=== PATIENT | female | born 1955 | race Caucasian/White ===

== ENCOUNTER → 2018-06-25 14:44 | Outpatient (CLI) | payer OTHER, SELFPAY ==
--- NOTE | 2018-06-25 14:49 | RAD_ITS ---
STUDY: X-RAY - RIGHT TIBIA AND FIBULA REASON FOR EXAM: Female, 63 years old. Midshaft tibia pain TECHNIQUE: 2 view(s) of the tibia and fibula were obtained. COMPARISON: None. FINDINGS: Normal visualized tibia. Normal visualized fibula. The soft tissue structures are unremarkable. RAD/Tibia & Fibula 2 Views IMPRESSION: Normal x-ray examination of the tibia and fibula. Electronically Signed: Manuel Del Castillo DO at 10:44 EDT Tel , Service support ,
== END ==
PROVIDERS: Family Provider Family Medicine; PCP Family Medicine; Visit Provider Family Medicine
DX: S80.11XA Contusion of right lower leg, initial encounter (principal)
CPT/HCPCS: 73590

== ENCOUNTER → 2018-06-27 14:40 | Outpatient (CLI) | payer OTHER, SELFPAY ==
--- NOTE | 2018-06-27 14:44 | BI_ITS ---
MAMMOGRAPHY - BILATERAL SCREENING REASON FOR EXAM: Female, 63 years old. Routine annual screening examination. PERTINENT HISTORY: Aunt with breast cancer. TECHNIQUE: Digital bilateral breast alan (3D mammographic acquisition) in the CC and MLO projections. 2-D mediolateral oblique (MLO) and craniocaudad (CC) views of both breasts were obtained. CAD: Full Field Digital Mammography with Computer Added Detection was performed. COMPARISON: Comparison is made with prior study dated June 22, 2017 and June 15, 2016. FINDINGS: Breast Composition: The breasts are heterogeneously dense, which may obscure small masses. There are no dominant masses or suspicious calcifications. No other significant abnormalities are identified. There has been no significant change since the prior study. BI/SCREENING MAMM (CAD), BILAT IMPRESSION: Stable bilateral screening mammogram. Yearly follow-up mammogram recommended. (A) ASSESSMENT CATEGORY: BIRADS Category 1: Negative. A letter regarding these results will be sent to the patient by the facility within 30 days. Approximately 10% of breast cancers are not detected by mammography. A normal mammogram should not delay biopsy of a clinically suspicious abnormality. [id number] Electronically Signed: Alex Menon MD at 8:04 EDT Tel [phone], Service support ,
== END ==
PROVIDERS: Family Provider Family Medicine; PCP Family Medicine; Visit Provider Obstetrics & Gynecology
DX: Z12.31 Encounter for screening mammogram for malignant neoplasm of breast (principal)
CPT/HCPCS: 77063; 77067

== ENCOUNTER → 2019-07-16 07:56 | Outpatient (CLI) | payer MEDICARE, SELFPAY ==
--- NOTE | 2019-07-16 08:02 | BI_ITS ---
BILATERAL DIGITAL MAMMOGRAM WITH TOMOSYNTHESIS: Mediolateraloblique and craniocaudal views demonstrate no evidence of dominant parenchymal masses. No cluster of microcalcifications or architectural distortion is seen. No evidence of skin thickening is identified. There has been no significant change since 06/27/2018. Breast Density: The breast tissue is extremely dense which may lower the sensitivity of mammography. CAD was used to assist in final assessment. IMPRESSION: NORMAL MAMMOGRAM BILATERALLY. ASSESSMENT CATEGORY: BIRADS Category 1: Negative. A letter regarding these results will be sent to the patient by the facility within 30 days. FOLLOW UP RECOMMENDATION: Yearly follow up mammogram recommended. (A) Approximately 10% of breast cancers are not detected by mammography. A normal mammogram should not delay biopsy of a clinically suspicious abnormality. Electronically Signed: Benjamín De Anda, at 17:25 EDT Tel , Service support , BI/SCREEN MAMM (CAD) W/PALOMA MCDONALD
== END ==
PROVIDERS: Family Provider Family Medicine; PCP Family Medicine; Referring Provider Obstetrics & Gynecology; Visit Provider Obstetrics & Gynecology
DX: Z12.31 Encounter for screening mammogram for malignant neoplasm of breast (principal)
CPT/HCPCS: 77063; 77067

== ENCOUNTER → 2020-07-20 | Outpatient (CLI) | payer MEDICARE, SELFPAY ==
[2020-07-20 22:43] LABS: Vitamin D,25 Hydroxy 34.8 ng/mL
[2020-07-22 20:49] LABS: V-Zoster IgG (Immunity) 2573 index (Immune >165)
== END | disposition home or self-care (01) ==
PROVIDERS: PCP Family Medicine; Visit Provider Family Medicine
DX: M85.80 Other specified disorders of bone density and structure, unspecified site (principal); E55.9 Vitamin D deficiency, unspecified; Z28.3 Underimmunization status
CPT/HCPCS: 36415; 82306; 86787

== ENCOUNTER → 2020-08-28 07:46 | Outpatient (CLI) | payer MEDICARE, OTHER, SELFPAY ==
[2020-07-29 10:23] VITALS: BMI 20.3
--- NOTE | 2020-08-28 07:55 | BI_ITS ---
MAMMOGRAPHY - BILATERAL SCREENING REASON FOR EXAM: Female, 65 years old. Routine annual screening examination. PERTINENT HISTORY: Aunt with breast cancer. TECHNIQUE: Digital bilateral breast paloma (3D mammographic acquisition) in the CC and MLO projections. 2-D mediolateral oblique (MLO) and craniocaudad (CC) views of both breasts were obtained. CAD: Full Field Digital Mammography with Computer Added Detection was performed. COMPARISON: Comparison is made with prior study dated 07/16/2019 and 06/27/2008. FINDINGS: Breast Composition: The breasts are extremely dense, which lowers the sensitivity of mammography. There are no dominant masses or suspicious calcifications. Stable small benign appearing bilateral axillary lymph nodes. No other significant abnormalities are identified. There has been no significant change since the prior study. BI/SCREEN MAMM (CAD) W/PALOMA BILAT IMPRESSION: Stable bilateral screening mammogram. Yearly follow-up mammogram recommended. (A) ASSESSMENT CATEGORY: BIRADS Category 2: Benign. A letter regarding these results will be sent to the patient by the facility within 30 days. Approximately 10% of breast cancers are not detected by mammography. A normal mammogram should not delay biopsy of a clinically suspicious abnormality. [id number] Electronically Signed: Alex Menon, at 9:23 EST , Service support ,
== END ==
PROVIDERS: PCP Family Medicine; Referring Provider Nurse Practitioner Women's Health; Visit Provider Nurse Practitioner Women's Health
DX: Z12.31 Encounter for screening mammogram for malignant neoplasm of breast (principal)
CPT/HCPCS: 77063; 77067

== ENCOUNTER → 2021-09-09 08:16 | Outpatient (CLI) | payer MEDICARE, OTHER, SELFPAY ==
--- NOTE | 2021-09-09 08:20 | BI_ITS ---
MAMMOGRAPHY - BILATERAL SCREENING REASON FOR EXAM: Female, 66 years old. Routine annual screening examination. PERTINENT HISTORY: Aunt with breast cancer. TECHNIQUE: Digital bilateral breast paloma (3D mammographic acquisition) in the CC and MLO projections. 2-D mediolateral oblique (MLO) and craniocaudad (CC) views of both breasts were obtained. CAD: Full Field Digital Mammography with Computer Added Detection was performed. COMPARISON: Comparison is made with prior study dated 08/28/2020 and 07/16/2019. FINDINGS: Breast Composition: The breasts are extremely dense, which lowers the sensitivity of mammography. There are no dominant masses or suspicious calcifications. Stable small benign-appearing bilateral axillary lymph nodes. No other significant abnormalities are identified. There has been no significant change since the prior study. BI/SCRN MAMM (CAD)W/PALOMA BILAT IMPRESSION: Stable bilateral screening mammogram. Yearly follow-up mammogram recommended. (A) ASSESSMENT CATEGORY: BIRADS Category 2: Benign. A letter regarding these results will be sent to the patient by the facility within 30 days. Approximately 10% of breast cancers are not detected by mammography. A normal mammogram should not delay biopsy of a clinically suspicious abnormality. [id number] Electronically Signed: Alex Menon MD at 9:23 EST , Service support ,
== END ==
PROVIDERS: PCP Family Medicine; Visit Provider Nurse Practitioner Women's Health
DX: Z12.31 Encounter for screening mammogram for malignant neoplasm of breast (principal)
CPT/HCPCS: 77063; 77067

== ENCOUNTER → 2022-09-14 | Outpatient (CLI) | payer MEDICARE, OTHER, SELFPAY ==
[2022-09-14 12:10] LABS: Absolute Lymphocyte Count 2.45 X10^3/uL (0.83-4.51); Absolute Neutrophil Count 2.7 X10^3/uL (2.0-7.7); Basophil# 0.03 X10^3/uL; Basophil% 0.5 % (0-1); Eosinophil# 0.08 X10^3/uL; Eosinophils% 1.4 % (0-5); Hematocrit 46.8 % (37-47); Hemoglobin 15.3 g/dL (12.0-15.0); Lymphocyte # 2.45 X10^3/ul (0.83-4.51); Lymphocyte % 42.2 % (19-41); Mean Corp Hgb Conc 32.7 g/dL (32-36); Mean Corpuscular Hgb 30.1 pg (27.0-32.0); Mean Corpuscular Volume 91.9 fL (81-99); Mean Platelet Vol. 10.9 fl (6.2-12.0); Monocyte% 8.6 % (0-10); NRBC Flagged by Analyzer 0 % (0-5); Neutrophil # 2.72 X10^3/uL (2.7-7.7); Platelet Count 321 K/mm3 (150-450); RBC Distribution Width CV 11.9 % (11.6-14.6); RBC Distribution Width SD 40.5 fl (35.1-43.9); Red Blood Count 5.09 M/mm3 (4.2-5.4); White Blood Count 5.8 K/mm3 (4.4-11.0)
[2022-09-14 12:37] LABS: ALB/GLOB Ratio 1.3 RATIO (0.9-2.4); AST(SGOT) 17 U/L (15-37); Alanine Aminotransfer ALT/SGPT 24 U/L (13-56); Albumin, Serum 4.3 g/dL (3.2-5.0); Alkaline Phosphatase 74 U/L (45-117); Anion Gap 3 (5-15); BUN 12 mg/dL (7-18); BUN/Creat Ratio 16.8 RATIO (10-20); Calcium,Total 9.6 mg/dL (8.5-10.1); Chloride 103 mmol/L (98-107); Cholesterol 226 mg/dL (200); Creatinine, Serum 0.72 mg/dL (0.55-1.02); EST Glomerular Filtration Rate 86 mL/min (>60); Est Glom Filt Rate - Afr Amer 104 mL/min (>60); Globulin 3.4 g/dL (2.2-4.2); Glucose 91 mg/dL (74-106); High Density Lipoprotein 64 mg/dL; Protein, Total 7.7 g/dL (6.4-8.2); Sodium Level 136 mmol/L (136-145); Triglycerides 107 mg/dL; Very Low Density Lipoprotein 21 mg/dL (5-40)
[2022-09-14 12:39] LABS: Vitamin D,25 Hydroxy 48.8 ng/mL
== END | disposition home or self-care (01) ==
LOC: BFHLAB 08:41
PROVIDERS: PCP Family Medicine; Visit Provider Family Medicine
DX: E78.5 Hyperlipidemia, unspecified (principal); R79.81 Abnormal blood-gas level; R53.83 Other fatigue; E55.9 Vitamin D deficiency, unspecified
CPT/HCPCS: 36415; 80053; 80061; 82306; 85025

== ENCOUNTER → 2022-09-16 | Outpatient (CLI) | payer MEDICARE, OTHER, SELFPAY ==
--- NOTE | 2022-09-16 11:42 | BI_ITS ---
MAMMOGRAPHY - BILATERAL SCREENING REASON FOR EXAM: Female, 67 years old. Routine annual screening examination. PERTINENT HISTORY: Aunt with breast cancer. TECHNIQUE: Digital bilateral breast paloma (3D mammographic acquisition) in the CC and MLO projections. 2-D mediolateral oblique (MLO) and craniocaudad (CC) views of both breasts were obtained. CAD: Full Field Digital Mammography with Computer Added Detection was performed. COMPARISON: Comparison is made with prior study dated 09/09/2021 and 08/28/2020. FINDINGS: Breast Composition: The breasts are extremely dense, which lowers the sensitivity of mammography. There are no dominant masses or suspicious calcifications. No other significant abnormalities are identified. There has been no significant change since the prior study. BI/SCRN MAMM (CAD)W/PALOMA BILAT IMPRESSION: Stable bilateral screening mammogram. Yearly follow-up mammogram recommended. (A) ASSESSMENT CATEGORY: BIRADS Category 1: Negative. A letter regarding these results will be sent to the patient by the facility within 30 days. Approximately 10% of breast cancers are not detected by mammography. A normal mammogram should not delay biopsy of a clinically suspicious abnormality. [id number] Electronically Signed: Alex Menon MD at 12:54 EST ,
== END | disposition home or self-care (01) ==
LOC: OPBI 11:41
PROVIDERS: PCP Family Medicine; Referring Provider Nurse Practitioner Women's Health; Visit Provider Nurse Practitioner Women's Health
DX: Z12.31 Encounter for screening mammogram for malignant neoplasm of breast (principal); Z80.3 Family history of malignant neoplasm of breast
CPT/HCPCS: 77063; 77067

== ENCOUNTER 2023-03-31 08:48 | Outpatient (CLI) | payer MEDICARE, OTHER, SELFPAY ==
[2023-03-31 09:30] LABS: Erythrocyte Sedimentation Rate 4 mm/hr (0-30)
[2023-03-31 09:53] LABS: CRP < 2.90 mg/L (0.0-3.0)
[2023-04-03 15:08] LABS: Endomysial Antibody IgA Negative (Negative); Immunoglobulin A 63 mg/dL (87-352); t-Transglutaminase IgA <2 U/mL (0-3)
[2023-04-05 22:07] LABS: Anti-Centromere B Ab <0.2 AI (0.0-0.9); Anti-Chromatin <0.2 AI (0.0-0.9); Anti-Jo <0.2 AI (0.0-0.9); Anti-Scleroderma-70 AB <0.2 AI (0.0-0.9); Anti-dsDNA Ab <1 IU/mL (0-9); Beef <0.10 kU/L (Class 0); Chocolate <0.10 kU/L (Class 0); Clam <0.10 kU/L (Class 0); Codfish <0.10 kU/L (Class 0); Corn <0.10 kU/L (Class 0); Egg, White <0.10 kU/L (Class 0); Egg, Whole <0.10 kU/L (Class 0); Milk (Cow) <0.10 kU/L (Class 0); Peanut <0.10 kU/L (Class 0); Pork <0.10 kU/L (Class 0); RNP Ab 0.4 AI (0.0-0.9); SCALLOP <0.10 kU/L (Class 0); SESAME SEED <0.10 kU/L (Class 0); SJOGREN'S Anti-SS-A test < 0.2 AI (0.0-0.9); SJOGREN'S Anti-SS-B test < 0.2 AI (0.0-0.9); Shrimp <0.10 kU/L (Class 0); Smith Ab <0.2 AI (0.0-0.9); Soybean <0.10 kU/L (Class 0); Walnut, (Food) <0.10 kU/L (Class 0); Wheat <0.10 kU/L (Class 0)
[2023-04-06 00:07] LABS: Albumin 4.3 g/dL (2.9-4.4); Alpha-1-Globulins 0.2 g/dL (0.0-0.4); Alpha-2-Globulins 0.9 g/dL (0.4-1.0); Cytoplasmic Ab (C-ANCA) <1:20 titer (Neg:<1:20); Gamma Globulin 0.8 g/dL (0.4-1.8); Gastrin, Serum < 10 pg/mL (0-115); Immunoglobulin A 68 mg/dL (87-352); Immunoglobulin E 21 IU/mL (6-495); Immunoglobulin G 740 mg/dL (586-1602); Immunoglobulin M 130 mg/dL (26-217); PROEL- TOTAL PROTEIN 7.2 g/dL (6.0-8.5); Perinuclear Ab (P-ANCA) <1:20 titer (Neg:<1:20)
== END 2023-03-31 23:59 | disposition home or self-care (01) ==
PROVIDERS: PCP Family Medicine; Referring Provider Internal Medicine Gastroenterology; Visit Provider Internal Medicine Gastroenterology
DX: K58.9 Irritable bowel syndrome, unspecified (principal); Z80.0 Family history of malignant neoplasm of digestive organs
CPT/HCPCS: 36415; 82784; 82785; 82941; 83516; 84165; 85652; 86003; 86005; 86140; 86225; 86235; 86255; 86256; 86334

== ENCOUNTER → 2023-04-04 | Outpatient (CLI) | payer MEDICARE, OTHER, SELFPAY ==
[2023-04-08 21:08] LABS: Calprotectin, Stool 9 ug/g (0-120); Fats, Neutral Normal (.); Fats, Total Normal (.)
[2023-04-11 14:07] LABS: Pancreatic Elastase, Fecal < 50 (>200)
== END | disposition home or self-care (01) ==
LOC: LABSPEC 09:03
PROVIDERS: PCP Family Medicine; Referring Provider Internal Medicine Gastroenterology; Visit Provider Internal Medicine Gastroenterology
DX: K58.9 Irritable bowel syndrome, unspecified (principal); Z80.0 Family history of malignant neoplasm of digestive organs
CPT/HCPCS: 82653; 82705; 83993; 87177; 87209; 87329

== ENCOUNTER → 2023-04-26 | Outpatient (CLI) | payer MEDICARE, OTHER, SELFPAY ==
--- NOTE | 2023-04-26 11:39 | NM_ITS ---
CLINICAL: 68-year-old female with history of abdominal bloating and cramping. SEMI-SOLID PHASE 99m Tc SULFUR COLLOID GASTRIC EMPTYING STUDY COMPARISON: None available FINDINGS: The patient was administered 1.0 mCi of 99m Tc sulfur colloid mixed with oatmeal and consumed per os. Image acquisitions in the anterior-posterior projections were obtained for 60 minutes. There is prompt visualization of the stomach. There is no gastroesophageal reflux identified. The T ? raw data emptying was calculated to be 24.9 minutes, (Normal: 12-56 minutes). NM/Gastric Emptying Study IMPRESSION: 1. NORMAL 99m Tc sulfur colloid semi-solid phase (oatmeal) gastric emptying imaging examination. A. There is normal and preserved semi-solid phase gastric emptying compared to normal controls. (Eliana et al, J Nucl Med Tech 38: 186, 2010). Electronically Signed: Dileep Whitmore, at 21:03 EDT ,
== END | disposition home or self-care (01) ==
LOC: NM 11:36
PROVIDERS: PCP Family Medicine; Referring Provider Internal Medicine Gastroenterology; Visit Provider Internal Medicine Gastroenterology
DX: R14.0 Abdominal distension (gaseous) (principal); Z80.0 Family history of malignant neoplasm of digestive organs
CPT/HCPCS: 78264; A9541

== ENCOUNTER → 2023-08-17 | Outpatient (CLI) | payer MEDICARE, OTHER, SELFPAY ==
[2023-08-17 08:41] LABS: Absolute Lymphocyte Count 2.17 X10^3/uL (0.83-4.51); Basophil# 0.05 X10^3/uL; Basophil% 0.7 % (0-1); Eosinophil# 0.12 X10^3/uL; Eosinophils% 1.8 % (0-5); Hematocrit 46.3 % (37-47); Hemoglobin 14.5 g/dL (12.0-15.0); Lymphocyte # 2.17 X10^3/ul (0.83-4.51); Lymphocyte % 32.1 % (19-41); Mean Corp Hgb Conc 31.3 g/dL (32-36); Mean Corpuscular Hgb 29.1 pg (27.0-32.0); Mean Platelet Vol. 10.6 fl (6.2-12.0); Monocyte# 0.39 X10^3/uL; Monocyte% 5.8 % (0-10); NRBC Flagged by Analyzer 0 % (0-5); Neutrophil # 3.99 X10^3/uL (2.7-7.7); Neutrophil % 59.2 % (47-70); Platelet Count 332 K/mm3 (150-450); RBC Distribution Width CV 11.9 % (11.6-14.6); RBC Distribution Width SD 41.1 fl (35.1-43.9); Red Blood Count 4.98 M/mm3 (4.2-5.4); White Blood Count 6.8 K/mm3 (4.4-11.0)
[2023-08-17 09:11] LABS: Vitamin D,25 Hydroxy 59.7 ng/mL
[2023-08-17 09:15] LABS: ALB/GLOB Ratio 1.3 RATIO (0.9-2.4); AST(SGOT) 21 U/L (15-37); Alanine Aminotransfer ALT/SGPT 30 U/L (13-56); Albumin, Serum 4.2 g/dL (3.2-5.0); Alkaline Phosphatase 85 U/L (45-117); Anion Gap 1 (5-15); BUN 10 mg/dL (7-18); BUN/Creat Ratio 14.9 RATIO (10-20); Calcium,Total 9.5 mg/dL (8.5-10.1); Chloride 106 mmol/L (98-107); Cholesterol 264 mg/dL (200); Creatinine, Serum 0.67 mg/dL (0.55-1.02); EST Glomerular Filtration Rate 93 mL/min (>60); Est Glom Filt Rate - Afr Amer 112 mL/min (>60); Globulin 3.3 g/dL (2.2-4.2); Glucose 101 mg/dL (74-106); High Density Lipoprotein 69 mg/dL; Potassium 3.8 mmol/L (3.5-5.1); Protein, Total 7.5 g/dL (6.4-8.2); Sodium Level 139 mmol/L (136-145); Triglycerides 157 mg/dL; Very Low Density Lipoprotein 31 mg/dL (5-40)
== END | disposition home or self-care (01) ==
LOC: LAB 08:09
PROVIDERS: PCP Family Medicine; Referring Provider Family Medicine; Visit Provider Family Medicine
DX: E78.5 Hyperlipidemia, unspecified (principal); E55.9 Vitamin D deficiency, unspecified; R53.83 Other fatigue
CPT/HCPCS: 36415; 80053; 80061; 82306; 85025

== ENCOUNTER → 2023-09-20 | Outpatient (CLI) | payer MEDICARE, OTHER, SELFPAY ==
--- NOTE | 2023-09-20 08:32 | BI_ITS ---
MAMMOGRAPHY - BILATERAL SCREENING REASON FOR EXAM: Female, 68 years old. Routine annual screening examination. PERTINENT HISTORY: Aunt with breast cancer. TECHNIQUE: Digital bilateral breast paloma (3D mammographic acquisition) in the CC and MLO projections. 2-D mediolateral oblique (MLO) and craniocaudad (CC) views of both breasts were obtained. CAD: Full Field Digital Mammography with Computer Added Detection was performed. COMPARISON: Comparison is made with prior study dated September 16, 2022 and September 09, 2021. FINDINGS: Breast Composition: The breasts are extremely dense, which lowers the sensitivity of mammography. There are no dominant masses or suspicious calcifications. No other significant abnormalities are identified. There has been no significant change since the prior study. BI/SCRN MAMM (CAD)W/PALOMA BILAT IMPRESSION: Stable bilateral screening mammogram. Yearly follow-up mammogram recommended. (A) ASSESSMENT CATEGORY: BIRADS Category 1: Negative. A letter regarding these results will be sent to the patient by the facility within 30 days. Approximately 10% of breast cancers are not detected by mammography. A normal mammogram should not delay biopsy of a clinically suspicious abnormality. [id number] Electronically Signed: Alex Menon MD at 10:52 EST ,
== END | disposition home or self-care (01) ==
LOC: OPBI 08:31
PROVIDERS: PCP Family Medicine; Referring Provider Nurse Practitioner Women's Health; Visit Provider Nurse Practitioner Women's Health
DX: Z12.31 Encounter for screening mammogram for malignant neoplasm of breast (principal)
CPT/HCPCS: 77063; 77067

== ENCOUNTER → 2024-09-23 | Outpatient (CLI) | payer MEDICARE, OTHER, SELFPAY ==
[2024-09-23 12:15] LABS: Absolute Neutrophil Count 4.1 X10^3/uL (2.0-7.7); Basophil# 0.03 X10^3/uL; Basophil% 0.4 % (0-1); Eosinophil# 0.09 X10^3/uL; Eosinophils% 1.2 % (0-5); Hematocrit 45.3 % (37-47); Hemoglobin 14.5 g/dL (12.0-15.0); Mean Corpuscular Volume 93.8 fL (81-99); Mean Platelet Vol. 10.5 fl (6.2-12.0); Monocyte# 0.57 X10^3/uL; Monocyte% 7.7 % (0-10); NRBC Flagged by Analyzer 0 % (0-5); Neutrophil # 4.14 X10^3/uL (2.7-7.7); Neutrophil % 56.3 % (47-70); Platelet Count 346 K/mm3 (150-450); RBC Distribution Width CV 11.9 % (11.6-14.6); RBC Distribution Width SD 41.5 fl (35.1-43.9); Red Blood Count 4.83 M/mm3 (4.2-5.4); White Blood Count 7.4 K/mm3 (4.4-11.0)
[2024-09-23 12:36] LABS: ALB/GLOB Ratio 1.1 RATIO (0.9-2.4); AST(SGOT) 20 U/L (15-37); Alanine Aminotransfer ALT/SGPT 31 U/L (13-56); Albumin, Serum 3.9 g/dL (3.2-5.0); Alkaline Phosphatase 104 U/L (45-117); Anion Gap 5 (5-15); BUN 8 mg/dL (7-18); BUN/Creat Ratio 9.7 RATIO (10-20); Calcium,Total 9.3 mg/dL (8.5-10.1); Chloride 100 mmol/L (98-107); Cholesterol 283 mg/dL (200); Creatinine, Serum 0.83 mg/dL (0.55-1.02); EST Glomerular Filtration Rate 72 mL/min (>60); Est Glom Filt Rate - Afr Amer 88 mL/min (>60); Globulin 3.4 g/dL (2.2-4.2); Glucose 91 mg/dL (74-106); High Density Lipoprotein 66 mg/dL; Potassium 3.9 mmol/L (3.5-5.1); Protein, Total 7.3 g/dL (6.4-8.2); Sodium Level 135 mmol/L (136-145); Triglycerides 152 mg/dL; Very Low Density Lipoprotein 30 mg/dL (5-40)
[2024-09-23 18:35] LABS: Vitamin D,25 Hydroxy 32.8 ng/mL
== END | disposition home or self-care (01) ==
LOC: LAB.FUTURE 10:53
PROVIDERS: PCP Family Medicine; Referring Provider Family Medicine; Visit Provider Family Medicine
DX: E78.5 Hyperlipidemia, unspecified (principal); E55.9 Vitamin D deficiency, unspecified; Z51.81 Encounter for therapeutic drug level monitoring
CPT/HCPCS: 36415; 80053; 80061; 82306; 85025

== ENCOUNTER → 2024-09-26 | Outpatient (CLI) | payer MEDICARE, OTHER, SELFPAY ==
--- NOTE | 2024-09-26 08:22 | BI_ITS ---
MAMMOGRAPHY - BILATERAL SCREENING REASON FOR EXAM: Female, 69 years old. Routine annual screening examination. PERTINENT HISTORY: Aunt with breast cancer. TECHNIQUE: Digital bilateral breast paloma (3D mammographic acquisition) in the CC and MLO projections. 2-D mediolateral oblique (MLO) and craniocaudad (CC) views of both breasts were obtained. CAD: Full Field Digital Mammography with Computer Added Detection was performed. COMPARISON: Comparison is made with prior study dated September 20, 2023 and September 16, 2022. FINDINGS: Breast Composition: The breasts are extremely dense, which lowers the sensitivity of mammography. There are no dominant masses or suspicious calcifications. No other significant abnormalities are identified. There has been no significant change since the prior study. BI/SCRN MAMM (CAD)W/PALOMA BILAT IMPRESSION: Stable bilateral screening mammogram. Yearly follow-up mammogram recommended. (A) ASSESSMENT CATEGORY: BIRADS Category 1: Negative. A letter regarding these results will be sent to the patient by the facility within 30 days. Approximately 10% of breast cancers are not detected by mammography. A normal mammogram should not delay biopsy of a clinically suspicious abnormality. [id number] Electronically Signed: Alex Menon MD at 9:21 EST ,
== END | disposition home or self-care (01) ==
LOC: OPBI 08:22
PROVIDERS: PCP Family Medicine; Referring Provider Nurse Practitioner Women's Health; Visit Provider Nurse Practitioner Women's Health
DX: Z12.31 Encounter for screening mammogram for malignant neoplasm of breast (principal)
CPT/HCPCS: 77063; 77067

== ENCOUNTER → 2024-09-30 | Outpatient (CLI) | payer MEDICARE, OTHER, SELFPAY ==
[2024-10-01 16:07] LABS: CHOLESTEROL TOTAL 255 mg/dL (100-199); HDL-C 60 mg/dL (>39); HDL-P TOTAL 36.9 umol/L (>=30.5); INSULIN RESISTANCE SCORE 54 (<=45); LDL SIZE 21.7 nm (>20.5); LDL-C (NIH CALC) 165 mg/dL (0-99); LDL-P 1658 nmol/L (<1000); SMALL LDL-P 463 nmol/L (<=527); TRIGLYCERIDES 166 mg/dL (0-149)
== END | disposition home or self-care (01) ==
LOC: BFHLAB 10:07
PROVIDERS: PCP Family Medicine; Referring Provider Family Medicine; Visit Provider Family Medicine
DX: E78.5 Hyperlipidemia, unspecified (principal)
CPT/HCPCS: 36415; 80061; 83704

== ENCOUNTER 2024-12-12 06:10 | Day surgery (SDC) | payer MEDICARE, OTHER, SELFPAY ==
[2024-12-12] VITALS (9 sets, daily range): BP systolic 80–138; BP diastolic 59–81; PULSE 60–83; RESP 16; TEMP 36.4–37; O2SAT 96–100
--- NOTE | 2024-12-12 06:42 | HP.PCM_ITS ---
HPI - General General Date of Admission: 12/12/24 Date of Service: 12/12/24 Chief Complaint: Family history of colon cancer HPI Narrative FRANCISCO DELCID, is a 69 F who presents today for surveillance colonoscopy. She has a positive family history in her daughter who was diagnosed with colon cancer. She is not having any problems with her bowels at this time. She does have a past medical history of exocrine pancreatic insufficiency. [facility] Medical History Wears glasses Post-menopausal Depression Anxiety Migraine headache Dietary restriction Non-smoker HLD (hyperlipidemia) IBS (irritable bowel syndrome) Essential tremor Osteoarthritis Vitamin D deficiency TMJ (dislocation of temporomandibular joint) Fibromyalgia Chronic headaches Arthritis Home Medications ?Medication ?Instructions ?Recorded ?Last Taken ?Type multivitamin 1 tab PO DAILY 07/29/20 Unkn own History sumatriptan succinate 25 mg tablet See Rx Instructions PO .COMPLEX 07/29/20 Unknown History (Imitrex) turmeric 400 mg capsule 400 mg PO DAILY PRN PRN ARTH RITIS 07/29/20 Unknown History diclofenac sodium 1 % topical gel 2 g topical ONCE PRN pain 02/08/23 Unknown History (Arthritis Pain (diclofenac)) [id number] See Rx Instructions PO .COMP PENNY 04/25/23 Unknown Rx 40,000-126,000-168,000 unit #320 caps capsule, delay rel (Zenpep) calcium 600 mg (as 2 tab PO DAILY 12/10/24 Unkn own History carbonate)-vitamin D3 5 mcg (200 unit) tablet (Calcium 600 + D(3)) cholecalciferol (vitamin D3) 50 4,000 unit PO DAILY Unknown History mcg (2,000 unit) capsule (Vitamin D3) citalopram 20 mg tablet (Celexa) 20 mg PO QHS 12/10/24 Unknown History ezetimibe 10 mg tablet 10 mg PO DAILY 12/10/24 Unkn own History Allergy/AdvReac Type Severity Reaction Status Date / Time No Known Allergies Allergy Verified 12/12/24 06:36 Family History Mother CHF (congestive heart failure) Depression Bipolar 1 disorder Father Hypertension Brother AVM (arteriovenous malformation) Brain bleed Aunt Cancer Daughter Colon cancer, Onset Age: 47 Surgical History History of colonoscopy History of surgery on arm History of appendectomy History of tonsillectomy Social History household members: spouse number of children: 2 current occupational status: retired history of recent travel: No sexually active: No (d/t ED) Smoking Status: Never smoker alcohol intake: current alcohol intake frequency: a few times a month substance use type: does not use diet: lactose free and other well-balanced diet: daily or most days what type of physical activity do you participate in: walking, yoga and weight training seatbelt use: always do you feel safe at home: Yes additional social history: - Zachariah ROS Constitutional Constitutional: Denies fatigue, fever(s), poor appetite, weight gain or weight l oss Gastrointestinal Gastrointestinal: Denies belching, bloating, change in bowel habits, change in stool character, chewing difficulty, coffee ground emesis, constipation, cramping, diarrhea, dyspepsia, dysphagia, early satiety, excessive flatus, fecal incontinence, heartburn, hematemesis, hematochezia, hemorrhoids, loose stools, melena, nausea, odynophagia, rectal bleeding, tenesmus, vomiting or weight changes Vital Signs Vital Signs Vital Signs: 12/12/24 06:36 12/12/24 06:36 Temperature 97.8 F Temperature Source Temporal Pulse Rate 60 Respiratory Rate 16 Respiratory Pattern Normal Blood Pressure 138/81 H Blood Pressure Mean 100 Blood Pressure Source Monitor Blood Pressure Position Semi-Fowlers Blood Pressure Location Right Arm Pulse Ox 99 Oxygen Delivery Method Room Air Weight Weight: 116 lb 13.52 oz Body Mass Index (BMI) 20.0 Physical Exam Const alert, oriented x3, no apparent distress and healthy appearing General Appearance: cooperative GI normal to inspection, nondistended, normoactive bowel sounds, soft to palpation, non-tender and non-distended Percussion: normal to percussion Rectal Exam: deferred Assessment & Plan Assessment/Plan (1) Family history of colon cancer: PLAN: Assessment and Plan Assessment and Plan (1) Family history of colon cancer: Status: Chronic Comment: daughter age 46-dec age 47. Plan: Unfortunately her daughter was diagnosed with stage III colon cancer and it has had a great effect on her anxiety and subsequently on her previous diagnosis of IBS. Fortunately she is doing very well in her treatment and hopefully she will continue down the course. She will undergo a colonoscopy due to strong family history of colon cancer. She was explained alternatives, risk, benefits include not withstanding bleeding, infection, sepsis, perforation, need for return to . She will have an ASA 3.
--- NOTE | 2024-12-12 06:57 | PRE.ANES_ITS ---
ASA Classification* ASA Classification ASA Classification: 2 Assessment & Plan Anesthesia* Anesthesia Assessment Anesthesia Assessment: Discussed sedation and/or anesthesia options, risks, benefits, and alternatives with patient/parents/legal guardian/POA. Questions invited. The patient/parents/legal guardian/POA seems to understand and agrees to proceed with anesthesia plan. Reviewed the physical assessment, medical history, allergy history and patient home medications list prior to surgery/procedure/anesthetic and documented any changes. Performed airway and anesthesia risk assessments. Anesthesia Type Anesthesia Type: MAC History Source History Obtained from:: Patient and Chart Anesthesia Focused Assessment* Temperature: 97.8 F Pulse Rate: 60 Blood Pressure: 138/81 Respiratory Rate: 16 Pulse Ox: 99 Oxygen Delivery Method: Room Air Airway Assessment Mouth opens: >3 cm Mallampati Score: IV Teeth Condition: Intact Neck Range of motion (ROM): Full ROM Focused Labs Anesthesia Preop lab: CBC WBC 7.4 K/mm3 (4.4-11.0) 09/23/24 10:54 09/23/24 RBC 4.83 M/mm3 (4.2-5.4) 09/23/24 10:54 09/23/24 Hgb 14.5 g/dL (12.0-15.0) 09/23/24 10:54 09/23/24 Hct 45.3 % (37-47) 09/23/24 10:54 09/23/24 Plt Count 346 K/mm3 (150-450) 09/23/24 10:54 09/23/24 CHEMISTRY Potassium 3.9 mmol/L (3.5-5.1) 09/23/24 10:54 09/23/24 Sodium 135 mmol/L (136-145) L 09/23/24 10:54 09/23/24 BUN 8 mg/dL (7-18) 09/23/24 10:54 09/23/24 Creatinine 0.83 mg/dL (0.55-1.02) 09/23/24 10:54 09/23/24 Glucose 91 mg/dL (74-106) 09/23/24 10:54 09/23/24 COAG Pre-Assessment Diagnosis/Proposed Procedure Planned Operative Procedure(s): COLONOSCOPY Anesthesia History Anesthesia History - demurrage agent: Anesthesia History - demurrage agent Hx Hospitalization No 12/10/24 15:49 Any Problems With Anesthesia No 12/10/24 15:49 Cholinesterase deficiency No 12/10/24 15:49 You/Your Family Experience No 12/10/24 15:49 fever (hyperthermia) with Relationship Recent Exposure to Contagious No 12/12/24 06:36 Disease Does patient have nerve No 12/10/24 15:49 stimulator Patient instructed to have device shut off --Does patient have Pacemaker No 12/12/24 06:36 or ICD? When Was Last Pacemaker Check QUESTION #4 FULL TEXT: You/Your Family Experience fever (hyperthermia) with Anesthesia Last Oral Intake Last Oral intake: Last Oral Intake NPO since 02:12/12/24 06:36 Meds taken in AM with sips of No 12/12/24 06:36 water? Meds patient instructed to take am of surgery Any additional information?: Yes NPO since: 02: (Patient finished prep at 2:30 AM.) Meds taken in AM with sips of water?: No PONV PONV - demurrage agent: PONV - demurrage agent Female Yes 12/10/24 15:49 HX of Motion Sickness No 12/10/24 15:49 HX of N/V After Surgery No 12/10/24 15:49 Non-Smoker Yes 12/10/24 15:49 Duration of Surgery greater No 12/10/24 15:49 than 60 minutes Number of Risk Factors 2 12/10/24 15:49 PONV Score Moderate Risk 12/10/24 15:49 Height & Weight Height & Weight: Anesthesia: Height & Weight Height 5 ft 4 in 12/12/24 06:36 Weight: 53 kg 12/12/24 06:36 Body Mass Index (BMI) 20.0 12/12/24 06:36 Respiratory Assessment Respiratory Assessment - demurrage agent: Respiratory Tract Infection Hx - demurrage agent Hx Respiratory Tract Infection No 12/10/24 15:49 STOP Sleep Apnea STOP Sleep Apnea - demurrage agent: STOP Sleep Apnea - demurrage agent Hx Hypertension No 12/10/24 15:49 Hx Sleep Apnea No 12/10/24 15:49 CPAP BIPAP Do you snore loudly (louder No 12/10/24 15:49 than talking or can be heard Do you often feel tired/ No 12/10/24 15:49 fatigued/ sleepy during daytime? Has anyone observed you stop No 12/10/24 15:49 breathing during sleep? STOP Results Negative 12/10/24 15:49 QUESTION #5 FULL TEXT : Do you snore loudly (louder than talking or can be heard through closed doors)? 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 Specify any problems Hx of Preganancy in last 3 No 12/10/24 15:49 Months Nurse Filling Out Transfusion MGRIFFITH 12/10/24 15:49 & Questions: Date: 12/10/24 12/10/24 15:49 Time: 15:52 12/10/24 15:49 Patient unable to answer at this time (ie. confused, unrespo /Reproduction History /Reproductive History - demurrage agent: /Reproductive Hx- demurrage agent Hx Now No 12/10/24 15:49 Gestational Age (in weeks): EDC: Hx Hx Para Hx Section SAB No 12/10/24 15:49 PFSH Medical History Wears glasses Post-menopausal Depression Anxiety Migraine headache Dietary restriction Non-smoker HLD (hyperlipidemia) IBS (irritable bowel syndrome) Essential tremor Osteoarthritis Vitamin D deficiency TMJ (dislocation of temporomandibular joint) Fibromyalgia Chronic headaches Arthritis Home Medications ?Medication ?Instructions ?Recorded ?Last Taken ?Type multivitamin 1 tab PO DAILY 07/29/20 Unkn own History sumatriptan succinate 25 mg tablet See Rx Instructions PO .COMPLEX 07/29/20 Unknown History (Imitrex) turmeric 400 mg capsule 400 mg PO DAILY PRN PRN ARTH RITIS 07/29/20 Unknown History diclofenac sodium 1 % topical gel 2 g topical ONCE PRN pain 02/08/23 Unknown History (Arthritis Pain (diclofenac)) [id number] See Rx Instructions PO .COMP PENNY 04/25/23 Unknown Rx 40,000-126,000-168,000 unit #320 caps capsule, delay rel (Zenpep) calcium 600 mg (as 2 tab PO DAILY 12/10/24 Unkn own History carbonate)-vitamin D3 5 mcg (200 unit) tablet (Calcium 600 + D(3)) cholecalciferol (vitamin D3) 50 4,000 unit PO DAILY Unknown History mcg (2,000 unit) capsule (Vitamin D3) citalopram 20 mg tablet (Celexa) 20 mg PO QHS 12/10/24 Unknown History ezetimibe 10 mg tablet 10 mg PO DAILY 12/10/24 Unkn own History Allergy/AdvReac Type Severity Reaction Status Date / Time No Known Allergies Allergy Verified 12/12/24 06:36 Family History Mother CHF (congestive heart failure) Depression Bipolar 1 disorder Father Hypertension Brother AVM (arteriovenous malformation) Brain bleed Aunt Cancer Daughter Colon cancer, Onset Age: 47 Surgical History History of colonoscopy History of surgery on arm History of appendectomy History of tonsillectomy Social History household members: spouse number of children: 2 current occupational status: retired history of recent travel: No sexually active: No (d/t ED) Smoking Status: Never smoker alcohol intake: current alcohol intake frequency: a few times a month substance use type: does not use diet: lactose free and other well-balanced diet: daily or most days what type of physical activity do you participate in: walking, yoga and weight training seatbelt use: always do you feel safe at home: Yes additional social history: - Zachariah Review of Systems (Anesthesia) ROS Narrative System reviewed and no additional complaints, except as documented.
--- NOTE | 2024-12-12 07:30 | COLBX_PTH ---
PATIENT: ANGIE YOO LOC: EN U#:[id number] AGE/SX: 69/F ROOM: RE12/12/[address]: Dr. Jann Alvarado DO : 1955 BED: DIS: 12/12/2024 SPEC #: [id number] RECD: 12/12/24 09:56 STATUS: NATHALY RECortney #: [id number] WILLY: 12/12/24 07:[address]: Jann Alvarado DEPT: SURGICAL PATHOLOGY RECD BY: Kelsy Moreno ENTERED: 12/12/24 11:26 SP TYPE: COLON BX OTHR DR: Dr. Frank Rodriguez DO Tissues: A - COLON BIOPSY B - Transverse colon Procedures: Surgery Specimen Level IV HEADER OPERATION: Colonoscopy with polypectomy and biopsy PRE-OP DIAGNOSIS: Family history of colon cancer TISSUE SUBMITTED: A- Hepatic flexure polyp, B- Transverse colon polyp biopsy MICROSCOPIC DIAGNOSIS A. Colon, hepatic flexure, polyp, biopsy: * Tubular adenoma. B. Transverse colon, polyp, biopsy: * Focal features suggestive of sessile serrated lesion. * Negative for dysplasia (deeper sections examined). MICROSCOPIC DESCRIPTION Slides are reviewed. GROSS DESCRIPTION Specimen A-received in formalin labeled Angie Yoo, and designated hepatic flexure polyp, are multiple noriega tissue fragments aggregating to 1.5 x 1.5 x 0.2 cm. Totally submitted in one cassette.Specimen B-received in formalin labeled Angie Yoo, and designated transverse colon polyp biopsy, is a noriega tissue fragment that measures 0.3 x 0.2 x 0.2 cm. Totally submitted in one cassette.JK. 12/12/2024 CPT:85951k7
--- NOTE | 2024-12-12 08:12 | OP.COLON_ITS ---
Patient Name: Angie Yoo Procedure Date: 12/12/2024 7:35 AM Date of : 1955 Age: 69 Procedure: Colonoscopy Indications: High risk colon cancer surveillance: Personal history of colonic polyps, Family history of colon cancer in a first-degree relative before age 60 years Providers: Jann Alvarado DO Referring MD: Frank Rodriguez Medicines: Monitored Anesthesia Care Patient Profile: This is a 69 year old female. Refer to note in patient chart for documentation of history and physical. Last Colonoscopy: 3 years ago. Complications: No immediate complications. Procedure: Pre-Anesthesia Assessment: - Prior to the procedure, a History and Physical was performed, and patient medications and allergies were reviewed. The patient is competent. The risks and benefits of the procedure and the sedation options and risks were discussed with the patient. All questions were answered and informed consent was obtained. Patient identification and proposed procedure were verified by the physician in the pre-procedure area. Mental Status Examination: alert and oriented. Airway Examination: normal oropharyngeal airway and neck mobility. Respiratory Examination: clear to auscultation. CV Examination: normal. Prophylactic Antibiotics: The patient does not require prophylactic antibiotics. Prior Anticoagulants: The patient has taken no anticoagulant or antiplatelet agents except for NSAID medication. ASA Grade Assessment: II - A patient with mild systemic disease. After reviewing the risks and benefits, the patient was deemed in satisfactory condition to undergo the procedure. The anesthesia plan was to use monitored anesthesia care (MAC). Immediately prior to administration of medications, the patient was re-assessed for adequacy to receive sedatives. The heart rate, respiratory rate, oxygen saturations, blood pressure, adequacy of pulmonary ventilation, and response to care were monitored throughout the procedure. The physical status of the patient was re-assessed after the procedure. After I obtained informed consent, the scope was passed under direct vision. Throughout the procedure, the patient's blood pressure, pulse, and oxygen saturations were monitored continuously. The colonoscope was introduced through the anus and advanced to the cecum, identified by appendiceal orifice and ileocecal valve. The colonoscopy was performed without difficulty. The patient tolerated the procedure well. The quality of the bowel preparation was adequate. The ileocecal valve, appendiceal orifice, and rectum were photographed. Scope In: 7:46:23 AM Scope Withdrawal Time 0 hours 12 minutes 20 seconds Scope Out: 8:06:52 AM Total Procedure Duration Time 0 hours 20 minutes 29 seconds Findings: The perianal and digital rectal examinations were normal. Multiple medium-mouthed diverticula were found in the recto-sigmoid colon and sigmoid colon. A 10 mm polyp was found in the hepatic flexure. The polyp was sessile. The polyp was removed with a hot snare. Resection and retrieval were complete. Verification of patient identification for the specimen was done. Estimated blood loss was minimal. A 6 mm polyp was found in the transverse colon. The polyp was sessile. The polyp was removed with a cold biopsy forceps. Resection and retrieval were complete. Verification of patient identification for the specimen was done. Estimated blood loss was minimal. Retroflexion in the rectum was not performed due to anatomy. Moderate rectal prolapse was present. Impression: - Diverticulosis in the recto-sigmoid colon and in the sigmoid colon. - One 10 mm polyp at the hepatic flexure, removed with a hot snare. Resected and retrieved. - One 6 mm polyp in the transverse colon, removed with a cold biopsy forceps. Resected and retrieved. - Rectal prolapse. Recommendation: - Discharge patient to home. - Resume previous diet. - Continue present medications. - Await pathology results. - Repeat colonoscopy in 3 years for surveillance. Procedure Code(s): --- Professional --- 92904, Colonoscopy, flexible; with removal of tumor(s), polyp(s), or other lesion(s) by snare technique 54188, 59, Colonoscopy, flexible; with biopsy, single or multiple CPT copyright 2021 [employer]. All rights reserved. The codes documented in this report are preliminary and upon touch up carver review may be revised to meet current compliance requirements. Jann Alvarado DO 12/12/2024 8:12:11 AM This report has been signed electronically. Number of Addenda: 0 Note Initiated On: 12/12/2024 7:35 AM
--- NOTE | 2024-12-12 08:13 | OP.CCLET_ITS ---
12/12/2024 Frank Rodriguez [address] [facility] [place] [address] Re : Colonoscopy procedure for Angie Naila Dear Dr. Rodriguez This procedure was performed on December. My impressions and recommendations are as follows: Impressions : - Diverticulosis in the recto-sigmoid colon and in the sigmoid colon. - One 10 mm polyp at the hepatic flexure, removed with a hot snare. Resected and retrieved. - One 6 mm polyp in the transverse colon, removed with a cold biopsy forceps. Resected and retrieved. - Rectal prolapse. Recommendations : - Discharge patient to home. - Resume previous diet. - Continue present medications. - Await pathology results. - Repeat colonoscopy in 3 years for surveillance. My findings are described in the full procedure note, which is enclosed. If I can be of further assistance, please feel free to contact me at . Sincerely, Jann Alvarado, 12/12/2024 8:12:11 AM This report has been signed electronically.
--- NOTE | 2024-12-12 08:16 | PCM.POST.ANE ---
Anesthesia: Postop Eval I Current Vital Signs Temperature: 97.6 F Pulse Rate: 80 Blood Pressure: 83/59 Respiratory Rate: 16 Pulse Ox: 100 Oxygen Delivery Method: Room Air Assessment Airway patent: Yes Spontaneous unlabored respirations: Yes Mental status: Asleep nausea: No Vomiting: No Anesthesia Complication: No Fluid Hydration Crystalloid volume administer (ml): 50 Total IV fluid infused: 50 Progress Note Anesthesia document: Postop Eval 1 completed: Yes
--- NOTE | 2024-12-12 12:39 | PCM.POSTANE2 ---
Anesthesia Postop Eval I Sum Postop Eval Completion status Anesthesia document: Postop Eval 1 completed: Yes Anesthesia Postop Eval I Summary Anesthesia Postop Eval I Summary: Anesthesia Postop Eval I: Assessment Summary Airway patent Yes 12/12/24 08:17 [email or web address] Spontaneous unlabored Yes 12/12/24 08:17 [email or web address] respirations Mental status Asleep 12/12/24 08:17 [email or web address] nausea No 12/12/24 08:17 [email or web address] Vomiting No 12/12/24 08:17 [email or web address] Anesthesia Postop Eval I: Fluid Summary Crystalloid volume administer 50 12/12/24 08:17 [email or web address] (ml) Colloids volume administered ( ml) Blood Product volume administered (ml) Total IV fluid infused 50 12/12/24 08:17 [email or web address] Anesthesia Postop Eval I: Summary Notes Anesthesia Complication No 12/12/24 08:17 [email or web address] Anesthesia Complication Comment: Post-operative progress note Anesthesia: Postop Eval II Evaluation Mental status: Awake and Calm Pain Level: 0 nausea: No Vomiting: No Complications Anesthesia Complication: No
== END 2024-12-12 09:02 | disposition home or self-care (01) ==
LOC: EN 06:13 → AC 06:14
PROVIDERS: PCP Family Medicine; Referring Provider Family Medicine; Visit Provider Internal Medicine Gastroenterology
PROC: 0DJD8ZZ Inspection of Lower Intestinal Tract, Via Natural or Artificial Opening Endoscopic (ICD-10-PCS; CPT 45378; principal; 2024-12-12 07:25)
DX: Z12.11 Encounter for screening for malignant neoplasm of colon (principal); K62.3 Rectal prolapse; E78.5 Hyperlipidemia, unspecified; K63.5 Polyp of colon; K57.30 Diverticulosis of large intestine without perforation or abscess without bleeding; Z86.0100 Personal history of colon polyps, unspecified; Z80.0 Family history of malignant neoplasm of digestive organs; D12.3 Benign neoplasm of transverse colon
CPT/HCPCS: 45385; 45380; 88305; A4216; J2405

== ENCOUNTER → 2024-12-23 | Outpatient (CLI) | payer MEDICARE, OTHER, SELFPAY ==
[2024-12-23 14:19] LABS: AST(SGOT) 23 U/L (<=31); Alanine Aminotransfer ALT/SGPT 30 U/L (<=34); Albumin, Serum 4.6 g/dL (3.4-4.8); Alkaline Phosphatase 82 U/L (35-104); Bilirubin, Direct 0.16 mg/dL (0.00-0.30); Cholesterol 217 mg/dL (<=200); Globulin 2.6 g/dL (2.2-4.2); High Density Lipoprotein 60 mg/dL; Low Density Lipoprotein Calc. 132 mg/dL; Protein, Total 7.2 g/dL (5.9-8.4); Total Bilirubin 0.43 mg/dL (0.00-1.30); Triglycerides 127 mg/dL; Very Low Density Lipoprotein 25 mg/dL (5-40); cholesterol:hdl ratio screen 3.62
== END | disposition home or self-care (01) ==
PROVIDERS: PCP Family Medicine; Visit Provider Family Medicine
DX: E78.5 Hyperlipidemia, unspecified (principal)
CPT/HCPCS: 36415; 80061; 80076

== ENCOUNTER → 2024-12-27 | Outpatient (CLI) | payer MEDICARE, OTHER, SELFPAY ==
--- NOTE | 2024-12-27 10:45 | RAD_ITS ---
PROCEDURE: CERV SPINE 4 OR 5 VIEWS ([facility]), 12/27/2024 REASON FOR EXAM: CERVICALGIA TECHNIQUE: AP, lateral, bilateral oblique, and open-mouth odontoid views of the cervical spine were obtained. COMPARISON: None FINDINGS: Fracture/dislocation: None visible. Vertebral body heights: Preserved. Alignment: Slight reversal of the normal cervical lordosis. Trace grade 1 likely degenerative anterolisthesis at C3-C4 and retrolisthesis at C5-C6. Disc spaces: Variable disc height loss focally up to moderate/severe at C4-C6 with tiny osteophytes and endplate sclerosis. Facets: Suspect mild midcervical facet arthropathy. Uncovertebral arthropathy also suggested. Soft tissues: Unremarkable. Foreign bodies: None visible. Bone mineralization: Demineralization. Other: Suspected bony midcervical foraminal stenoses on the LEFT, not well delineated by plain radiographs. RAD/Cerv Spine 4 or 5 Views IMPRESSION: 1. Demineralization without visible acute displaced fracture. 2. Multilevel spondylosis and additional description as above. Reading Location: [id number]
== END | disposition home or self-care (01) ==
LOC: MTRAD 10:41
PROVIDERS: PCP Family Medicine; Referring Provider Family Medicine; Visit Provider Family Medicine
DX: M54.2 Cervicalgia (principal)
CPT/HCPCS: 72050

== ENCOUNTER → 2025-09-27 | Outpatient (CLI) | payer MEDICARE, OTHER, SELFPAY ==
[2025-09-27 09:10] LABS: Hematocrit 42.8 % (37-47); Hemoglobin 14.3 g/dL (12.0-15.0); Immature Granulocytes Count 0.020 X10^3/uL (0.0-0.0); Mean Corp Hgb Conc 33.4 g/dL (32-36); Mean Corpuscular Volume 91.6 fL (81-99); Mean Platelet Vol. 9.6 fl (6.2-12.0); NRBC Flagged by Analyzer 0 % (0-5); Platelet Count 339 K/mm3 (150-450); RBC Distribution Width CV 12.3 % (11.6-14.6); RBC Distribution Width SD 41.0 fl (35.1-43.9); Red Blood Count 4.67 M/mm3 (4.2-5.4); White Blood Count 6.6 K/mm3 (4.4-11.0)
[2025-09-27 09:45] LABS: AST(SGOT) 24 U/L (<=31); Alanine Aminotransfer ALT/SGPT 26 U/L (<=34); Albumin, Serum 4.4 g/dL (3.4-4.8); Alkaline Phosphatase 89 U/L (35-104); Anion Gap 9 (5-15); BUN 8 mg/dL (4-19); BUN/Creat Ratio 12.8 RATIO (10-20); Calcium,Total 9.2 mg/dL (7.6-11.0); Carbon Dioxide 27.8 mmol/L (21.0-32.0); Chloride 101 mmol/L (98-108); Cholesterol 235 mg/dL (<=200); Globulin 2.4 g/dL (2.2-4.2); Glucose 90 mg/dL (70-99); Low Density Lipoprotein Calc. 149 mg/dL; Potassium 4.1 mmol/L (3.3-5.1); Triglycerides 138 mg/dL; Very Low Density Lipoprotein 28 mg/dL (5-40); cholesterol:hdl ratio screen 3.81
== END | disposition home or self-care (01) ==
LOC: LAB 08:50
PROVIDERS: PCP Family Medicine; Referring Provider Family Medicine; Visit Provider Family Medicine
DX: E78.5 Hyperlipidemia, unspecified (principal); E87.1 Hypo-osmolality and hyponatremia; D58.2 Other hemoglobinopathies
CPT/HCPCS: 36415; 80053; 80061; 85025

== ENCOUNTER → 2025-09-30 | Outpatient (CLI) | payer MEDICARE, OTHER, SELFPAY ==
--- NOTE | 2025-09-30 08:45 | BI_ITS ---
EXAM: SCRN MAMM (CAD)W/PALOMA BILAT DATE: 09/30/2025 CLINICAL HISTORY: F, Age 70 y/o , SCREENING FOR BREAST CANCER TECHNIQUE: Procedure Code: [id number] Modality: MG Procedure: SCRN MAMM (CAD)W/PALOMA BILAT COMPARISON: Prior exam(s) were compared FINDINGS: TISSUE DENSITY: The breasts are heterogeneously dense, which may obscure small masses. Bilateral Breast Mammographic Findings: No significant masses, calcifications or other abnormalities are identified. BI/SCRN MAMM (CAD)W/PALOMA BILAT IMPRESSION: No mammographic evidence of malignancy. OVERALL FINAL ASSESSMENT BI-RADS 1: NEGATIVE. RECOMMENDATION: Routine annual follow-up in 1 Year Additional Recommendation none A letter with findings and recommendations will be mailed to the patient. Reading Location: [id number]
== END | disposition home or self-care (01) ==
LOC: OPBI 08:53
PROVIDERS: PCP Family Medicine; Referring Provider Nurse Practitioner Women's Health; Visit Provider Nurse Practitioner Women's Health
DX: Z12.31 Encounter for screening mammogram for malignant neoplasm of breast (principal)
CPT/HCPCS: 77063; 77067